=== PATIENT | female | born 1995 | race Caucasian/White ===

== ENCOUNTER 2021-01-24 09:27 | Emergency (ER) | payer BC, MEDICAID ==
[~2021-01-24] VITALS: Ht 162.6 cm; Wt 59.9 kg
[2021-01-24 09:31] VITALS: BP 118/66
--- NOTE | 2021-01-24 09:40 | NUR ---
VA: LEFT EYE 20/30, RIGHT EYE 20/30, BOTH EYES 20/30
--- NOTE | 2021-01-24 09:55 | NUR ---
C/O LEFT EYELID SWELLING & BRUISE AFTER DRINKING & FALL X 2 DAYS. VA: LEFT EYE 20/30, RIGHT EYE 20/30, BOTH EYES 20/30
--- NOTE | 2021-01-24 11:16 | NUR ---
[facility] NEG. PT AAOX4, MOVED TO CHAIR C
--- NOTE | 2021-01-24 11:30 | NUR ---
PT SENT TO CT WITH YEVGENIY AAESHA4 AT THIS TIME
--- NOTE | 2021-01-24 12:35 | NUR ---
DR. VALERIO WITH PT FOR REEVALUATION.
[2021-01-24 12:40] VITALS: BP 133/61
--- NOTE | 2021-01-24 12:44 | NUR ---
Patient discharged with v/s stable. Written and verbal after care instructions given FOR ZYGOMA FRACTURE and explained. Patient verbalized understanding. Ambulatory with steady gait. All questions addressed prior to discharge. Advised to follow up with PMD.
== END 2021-01-24 12:44 | disposition home or self-care (01) ==
LOC: MED 09:27
DX: S02.40FA Zygomatic fracture, left side, initial encounter for closed fracture (principal); W18.39XA Other fall on same level, initial encounter; Y92.89 Other specified places as the place of occurrence of the external cause; Y93.89 Activity, other specified; Y99.8 Other external cause status
CPT/HCPCS: 70450; 70486; 81025; 99285